=== PATIENT | female | born 1940 | race Caucasian/White ===

== ENCOUNTER 2016-09-03 23:40 | Inpatient (IN) | payer BC, SELFPAY ==
--- NOTE | ~2016-09-03 | OP ---
Record Of Operation [facility] [address] [place]. [address] NAME: JARON WEAVER : 38 STATUS : ADM IN PAT#: [id number] AGE: 76 ADM/REG DATE : 09/04/16 MR#: [id number] REPORT SERV DATE: 09/06/16 DICTATED BY: MK CASTELLANOS DATE: 09/06/16 REPORT STATUS : Draft TRANSCRIBED BY: MODL DATE: 09/06/16 DATE OF PROCEDURE: 09/06/2016 PREOPERATIVE DIAGNOSIS: Gross hematuria and filling defect, left renal pelvis. POSTOPERATIVE DIAGNOSIS: Gross hematuria and filling defect, left renal pelvis. PROCEDURE: Cystoscopy, bilateral retrograde pyelography, left ureteroscopy, brush biopsy and cytology collection from left renal pelvis. ANESTHESIA: General. ESTIMATED BLOOD LOSS: 10 mL. FLUID REPLACEMENT: 600 mL of crystalloid. DRAINS: None. INDICATION: A 76-year-old white female with cirrhosis and gross hematuria. CT imaging demonstrates filling defect in the left renal pelvis. FINDINGS: 1. Filling defect of left renal pelvis. 2. Left proximal ureter was fixed and would not expand to allow passage of ureteroscope into the renal pelvis. TECHNIQUE: The patient and identified, brought to the operating room, and administered general anesthetic agent by the Anesthesia Service and intubated. She was positioned in dorsal lithotomy position. Vulva, groin, and introitus were prepped and draped in usual sterile fashion. A 22-[place] Ze[place]ander cystoscopic sheath with 30-degree lens was used for cystourethroscopy. The urethra was normal. The bladder was surveyed. There was blood coming from the left ureteral orifice. The right ureteral orifice is normal. There were no urothelial lesions in the bladder. A 30 and 70 degree scopes were used for examination. I then cannulated the left ureteral orifice and performed a left retrograde pyelogram. It showed a normal course of the left ureter, however, there was a large defect in the lower pole collecting system displacing the renal pelvis and proximal ureter medially. There was little if any hydronephrosis. The right retrograde pyelogram was normal. I advanced a 0.035 wire up the left ureter. Over the wire, I then removed the cystoscope. I dilated the proximal ureter with the axial dilator starting at 7-New Zealander and going to 12- [place]. I could not get the dilators to go up into the proximal ureter above 7-New Ze[place]ander. I removed the axial dilators, and then next to the wire, I advanced the rigid ureteroscope. The distal ureter was normal. I could get up to about the level of the proximal ureter and could advance no further. The ureter just would not distend. I placed the second wire through the ureteroscope and removed the rigid ureteroscope and then advanced a flexible ureteroscope. I met the same fate and could not pass it into the proximal ureter. I Record Of [place] [id number] [facility] [place]. [address] NAME: JARON WEAVER : 38 STATUS : ADM IN PAT#: [id number] AGE: 76 ADM/REG DATE : 09/04/16 MR#: [id number] REPORT SERV DATE: 09/06/16 DICTATED BY: MK CASTELLANOS DATE: 09/06/16 REPORT STATUS : Draft TRANSCRIBED BY: ADA DATE: 09/06/16 removed the flexible ureteroscope and then used a brush biopsy tool. First, I sampled cytology of the left renal pelvis through a 5-New Zealander open-ended catheter and then I used the brush biopsy and biopsied the lower portion of the renal pelvis with the brush biopsy. This was collected and sent and in a specimen container. I contemplated leaving a ureteral stent. Based on the fact that she needs a nephroureterectomy, I opted to leave the stent out. The wires were removed, the bladder was drained, and the procedure was terminated. The patient was awakened and taken to the recovery unit in stable and satisfactory condition. LIZY/ADA Mk Castellanos M.D. / [id number] CC: Annamarie Bowie M.D.
--- NOTE | ~2016-09-03 | HP ---
History And Physical [place] [address] [facility] [place]. [address] NAME: JARON WEAVER : 38 STATUS : ADM IN PAT#: [id number] AGE: 76 ADM/REG DATE : 09/04/16 MR#: [id number] REPORT SERV DATE: 09/04/16 DICTATED BY: REYNALDO SANCHEZ DATE: 09/04/16 REPORT STATUS : Draft TRANSCRIBED BY: MODL DATE: 09/04/16 DATE OF ADMISSION: 09/04/2016 CHIEF COMPLAINT: A 76-year-old female presenting with severe hematuria and increasing lethargy. HISTORY OF PRESENTING ILLNESS: The patient's history was obtained through careful interview with the patient and son, coupled with review of [facility] and [facility] medical records. The patient has been ill for about a month. She had actually seen Dr. Sandoval about two weeks ago because of increasing fatigue and illness and lethargy. But over this last week, the patient has developed intermittent hematuria and today, it became so severe that she felt she had to come to the hospital. She has not been passing any urinary blood clots. She has no dysuria, but she does describe polyuria and polydipsia. She has felt lightheaded, off balance, dizzy, lethargic. She has been apparently laying in bed almost all day long for several days, but there has been no overt confusion. No abdominal pain. No flank pain. No headache. No chest pain. No back pain. No pain complaints at all. She has no knowledge of previous diabetes, although several years ago, the patient was listed as being diabetic with a hemoglobin A1c of 7.1. REVIEW OF SYSTEMS: Otherwise, 14-point review of systems was obtained and was negative. PAST MEDICAL HISTORY: 1. NEWTON cirrhosis, followed by Dr. Moises Fletcher. 2. Portal hypertension with esophageal varices, followed by Dr. Leonel Mendez. 3. Coronary artery disease? but negative catheterization of the heart previously. 4. Hypertension. 5. Colonic polyps and duodenal polyps. 6. Spontaneous bacterial peritonitis with recurrent ascites. 7. Urinary tract infection. 8. Diabetes in 2014. Hemoglobin A1c of 7.1, but has never been on diabetic medications. 9. Anemia with iron infusions, followed by Dr. Sandoval. 10.Hepatic encephalopathy. PAST SURGICAL HISTORY: 1. Hysterectomy. 2. Cholecystectomy. 3. Appendectomy. ALLERGIES: NO KNOWN DRUG ALLERGIES. History And Physical [address] [place]. [address] NAME: JARON WEAVER : 38 STATUS : ADM IN [facility] WITH [facility]#: [id number] AGE: 76 ADM/REG DATE : 09/04/16 MR#: [id number] REPORT SERV DATE: 09/04/16 DICTATED BY: REYNALDO SANCHEZ DATE: 09/04/16 REPORT STATUS : Draft TRANSCRIBED BY: ADA DATE: 09/04/16 SOCIAL HISTORY: No tobacco abuse. No drug abuse. Lives in [place], [place]. Lives alone, has been a for 13 years. FAMILY HISTORY: Diabetes, heart disease, hypertension. No liver disease. CURRENT MEDICATIONS: Include Cipro twice a week, Protonix 20 mg p.o. daily, propranolol 20 mg p.o. b.i.d., spironolactone 50 mg p.o. daily, Actigall 600 mg p.o. b.i.d., lactulose two doses each day. PHYSICAL EXAMINATION: VITAL SIGNS: Temperature 97.7, pulse 63, blood pressure 146/63, respiratory rate 16, O2 saturation 97% on room air. GENERAL: A pleasant, cooperative female, somewhat lethargic and ill. HEENT: Pupils equal, round, and reactive to light. No conjunctival pallor. No scleral icterus. Nares are patent. Oropharynx is clear of obstruction. Mildly dry mucous membranes. NECK: Trachea midline. No thyromegaly. LYMPH: No cervical lymphadenopathy. No supraclavicular lymphadenopathy. RESPIRATORY: Clear to auscultation at bases. No wheezes, rales, or rhonchi. Normal respiratory effort. CARDIOVASCULAR: Regular rate and rhythm. The patient does have a 3/6 systolic murmur. No rubs or gallops. No extremity edema is appreciated. ABDOMEN: Soft, nontender, nondistended. Normal bowel sounds auscultated throughout. No hepatosplenomegaly. DERMATOLOGICAL: Warm and dry extremities. No pallor. No cyanosis. PSYCHIATRIC: Normal affect. Good mood. Alert and oriented x3. LABORATORY DATA: White blood cell count 6.3, hemoglobin 15, hematocrit 43, platelets 153. Sodium 134, potassium 4.2, chloride 101, bicarbonate 25, BUN 8, creatinine 1.15 from baseline creatinine of 0.8, glucose 425, lipase 374, albumin 2.6. INR 1.2, total bilirubin 1.7, alkaline phosphatase 416. Urinalysis shows greater than 182 red blood cells. No evidence of infection. STUDIES: 1. EKG by my own evaluation shows sinus rhythm, left axis deviation, left ventricular hypertrophy. 2. CT scan of the abdomen shows left hydronephrosis. ASSESSMENT AND PLAN: 1. Severe hematuria with good urine flow and no blood clots. Consult Dr. Rodriguez, urologist, who is aware of case and discussed it with ER staff. 2. New diagnosis of diabetes. Check hemoglobin A1c. Place on IV fluids and sliding scale insulin for now. 3. Uncontrolled hepatic encephalopathy. The patient admits to occasionally being noncompliant with regular dosing of lactulose. We will increase lactulose dose and give scheduled and monitor ammonia level. History And Physical [address] [address] NAME: JARON WEAVER : 38 STATUS : ADM IN PAT#: [id number] AGE: 76 ADM/REG DATE : 09/04/16 MR#: [id number] REPORT SERV DATE: 09/04/16 DICTATED BY: REYNALDO SANCHEZ DATE: 09/04/16 REPORT STATUS : Draft TRANSCRIBED BY: ADA DATE: 09/04/16 4. Nonalcoholic steatohepatitis cirrhosis. 5. Hydronephrosis. Consult Urology. KPL/MODL Reynaldo Sanchez M.D. / [id number] CC: Annamarie Bowie M.D. Gregory R. Sutton, MD Patrick Foley, M.D.
--- NOTE | ~2016-09-03 | CN ---
Consultation Report [facility] [address] [place]. [address] NAME: JARON ORTIZ : 38 STATUS : ADM IN PAT#: [id number] AGE: 76 ADM/REG DATE : 09/04/16 MR#: [id number] REPORT SERV DATE: 09/04/16 DICTATED BY: MK CASTELLANOS DATE: 09/04/16 REPORT STATUS : Draft TRANSCRIBED BY: MODL DATE: 09/04/16 DATE OF CONSULTATION: 09/04/2016 REASON FOR CONSULTATION: Gross hematuria. REQUESTING PROVIDER: Hospitalist Service. Other involved physicians are Dr. Yash Sandoval and Dr. Moises Fletcher. IMPRESSION: 1. Gross hematuria, painless. 2. Possible blood noted in the left renal pelvis on noncontrast CT. 3. Cirrhosis from nonalcoholic steatohepatitis. 4. Diabetes mellitus, new with glucosuria and elevated serum blood sugars. 5. Acute kidney injury that has resolved. 6. She is hemodynamically stable, as well as a normal hemoglobin and hematocrit. PLAN: 1. CT scan of the abdomen and pelvis with IV contrast tomorrow. 2. Cysto, bilateral retrograde pyelogram, possible brush biopsy of left renal pelvis on Tuesday. DISCUSSION: Ms. Ortiz is a 76-year-old female, who came to the hospital with gross hematuria. She has had it intermittently for a month. It has been painless. It has not caused her alarm until yesterday, at which point she felt that it was too much blood. She denies any nausea or vomiting. She came to the emergency department and had a CT scan, which reported some mild left hydronephrosis with some increased density in the fluid in the left renal pelvis, consistent with possible blood. There were no stones, and there were no obstructions noted. She does have a history of cirrhosis and hepatitis, that has been relatively stable. However, her ammonia levels were elevated when she came into the emergency department last night. Additionally, she has a vague history of diabetes, but was not under any care or treatment for it and that was out of control last night as well. She denies any dysuria. She says she empties her bladder well. She has no history of urolithiasis. She has no history of tobacco abuse. PHYSICAL EXAMINATION: GENERAL: Shows a well-developed, well-nourished white female, in no acute distress. She is awake and alert. Her cognitive function seems pretty good. HEENT: Sclerae anicteric. NECK: Supple. LUNGS: Clear. HEART: Has regular rate and rhythm. ABDOMEN: Soft and nontender. I do not appreciate any ascites. Her flanks are nontender. Consultation Report [place] [address] [place]. [address] NAME: JARON ORTIZ : 38 STATUS : ADM IN PAT#: [id number] AGE: 76 ADM/REG DATE : 09/04/16 MR#: [id number] REPORT SERV DATE: 09/04/16 DICTATED BY: MK CASTELLANOS DATE: 09/04/16 REPORT STATUS : Draft TRANSCRIBED BY: ADA DATE: 09/04/16 The bladder is not distended. EXTREMITIES: Lower extremities show no deformities. STUDIES: Serum creatinine on admission was 1.15, it has declined to 0.79 with hydration. Urinalysis showed 3+ blood, 2+ glucose, greater than 180 red cells per high-power field. CT scan as described above. Her INR and coags were normal. Her serum ammonia level was 106 last night. This does not appear to be a stone. Given her medical comorbidities, it is possible she has some papillary necrosis as a source for hematuria. Additional problems could be a urothelial cancer such as a transitional carcinoma of the renal pelvis. A contrast CT will help in elucidating this and probable cysto and retrograde at a later date. PF/MODL Mk Castellanos M.D. / [id number] CC: Annamarie Bowie M.D.
--- NOTE | ~2016-09-03 | DS ---
Discharge Summary [place] [id number] [place]. [address] NAME: JARON WEAVER : 38 STATUS : DIS IN PAT#: [id number] AGE: 76 ADM/REG DATE : 09/04/16 MR#: [id number] REPORT SERV DATE: 09/08/16 DICTATED BY: DATE: REPORT STATUS : Draft TRANSCRIBED BY: MODL DATE: 09/07/16 ADMISSION DATE: 09/04/2016 DISCHARGE DATE: 09/07/2016 DISCHARGE DIAGNOSES: 1. Hematuria. 2. Diabetes mellitus type 2, uncontrolled with an A1c of 12.4. 3. 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 4. Acute kidney injury. 5. Pancreatic cyst. DISCHARGE MEDICATIONS: 1. Cipro 250 mg p.o. Tuesday and Tuesday. 2. NovoLog sliding scale level 2. 3. Protonix 20 mg p.o. daily. 4. Inderal 20 mg p.o. b.i.d. 5. Ursodiol 600 mg p.o. b.i.d. 6. Aldactone 50 mg p.o. daily. 7. Rifaximin 550 mg p.o. b.i.d. 8. Levemir 20 units subcu daily. CONSULTING PHYSICIANS: kM Rodriguez M.D., with Urology. For full H and P, please refer to Dr. Boy Baird's dictation on 09/03/2016. Please also see Dr. Mk Rodriguez's consultation report on 09/03/2016 as well as record of operation on 09/05/2016. HOSPITAL COURSE/PROBLEM LIST: 1. Hematuria. Dr. Rodriguez was consulted from Urology. The patient underwent cystoscopy with bilateral retrograde pyelography, left ureteroscopy, brush biopsy and cytology collection from left renal pelvis. Findings included a filling defect of the left renal pelvis, and the left proximal ureter was fixed in and would not expand to allow passage of ureteroscope into the renal pelvis. The patient will follow up as an outpatient with Dr. Rodriguez on Tuesday of this week. She likely needs a nephroureterectomy; however, due to her cirrhosis Dr. Rodriguez will discuss this with Dr. Moises Fletcher to decide if it would be safe to proceed and what her prognosis would be. Biopsies are still pending from the ureteroscopy; however, Dr. Rodriguez indicates that this could possibly be a transitional cell carcinoma of the left kidney. This would also complicate prognosis. 2. Diabetes mellitus type 2, uncontrolled. The patient's hemoglobin A1c was 12.4, apparently she has been told she had diabetes in the past with a hemoglobin A1c of 7.1 several years ago; however, she was never placed on antidiabetic medications. I will be discharging her with Levemir as well as NovoLog sliding scale. She does not have a primary care provider at this time. She lives alone. Her daughter is staying with her to take care of her; however, she is from [place], we tried to set up home health care for her. Her daughter also states that she will find her a primary care provider Discharge Summary [address] [place]. [address] NAME: JARON WEAVER : 38 STATUS : DIS IN PAT#: [id number] AGE: 76 ADM/REG DATE : 09/04/16 MR#: [id number] REPORT SERV DATE: 09/08/16 DICTATED BY: DATE: REPORT STATUS : Draft TRANSCRIBED BY: MODL DATE: 09/07/16 TORRIE. She will need to do this for diabetes management and overall medical management. 3. Cirrhosis due to NEWTON. She is followed by Dr. Moises Fletcher. She will follow up with him as needed. 4. Acute kidney injury. The patient's creatinine today is 1.26. She is encouraged to increase p.o. fluids especially water. Apparently, the patient was drinking Gatorade constantly at home due to thirst and feeling poorly. The patient was instructed to not drink Gatorade due to her hemoglobin A1c of 12.4, and to continue with water and non- sugary beverages. 5. Pancreatic cyst. This was noted CT scan, likely benign per Radiology's report. She will need to obtain and follow up with the primary care provider for possible imaging in the future. I will discharge the patient home today. Again, she will follow up with Dr. Mk Rodriguez on Tuesday of this week. CLR/MODL Merritt Ramirez NP / [id number] CC: MD Moises Avalos M.D. Patrick Foley, M.D. Chirag Patel, M.D.
[2016-09-03 20:26] LABS: INTERNATIONAL NORMAL RATI 1.2 UNITS (-); PARTIAL THROMBO TIME 31.2 SEC (22.5-37.2); PROTIME (NOT ORD) 15.3 SEC (12.0-14.5)
[2016-09-03 20:32] LABS: A/G RATIO 0.7 (0.7-1.9); ALBUMIN 2.6 G/DL (3.5-5.0); CALCIUM, SERUM 9.2 MG/DL (8.5-10.4); CHLORIDE, SERUM 101 MMOL/L (96-112); CO2 (CARBON DIOXIDE) 25 MMOL/L (24-34); CREATININE 1.15 MG/DL (0.55-1.02); GFR AFRICAN AMERICAN 53 ML/MIN (>=60); GFR NON AFRICAN AMERICAN 46 ML/MIN (>=60); GLOBULIN 3.9 G/DL (2.5-4.1); POTASSIUM, SERUM 4.2 MMOL/L (3.5-5.3); SGOT(AST) 39 U/L (5-40); SGPT(ALT) 31 U/L (5-65); SODIUM, SERUM 134 MMOL/L (135-148); TOTAL BILIRUBIN 1.7 MG/DL (0-1.2); TOTAL PROTEIN 6.5 G/DL (6.0-8.5)
[2016-09-03 20:37] LABS: BASOPHILS 0.5 %; BASOPHILS ABSOLUTE 0.03 10/3/uL (0.0-0.16); EOSINOPHILS 2.7 %; EOSINOPHILS ABSOLUTE 0.17 10/3/uL (0.0-0.53); ER CBC TAT 0 Hrs 24 Mins; HEMATOCRIT 42.6 % (36.0-48.0); HEMOGLOBIN 15.2 g/dL (12.0-16.0); IMMATURE GRANULOCYTES 0.2 %; IMMATURE GRANULOCYTES ABSOLUTE 0.01 10/3/uL (0.0-0.11); LYMPHOCYTES ABSOLUTE 1.82 10/3/uL (0.67-4.30); MANUAL DIFF NO %; MEAN CORPUS HGB CONC 35.7 g/dL (32.0-36.0); MEAN CORPUSCULAR VOLUME 92.4 fL (80-100); MEAN PLATELET VOLUME 10.1 fL (9.2-13.0); MONOCYTES 13.1 %; MONOCYTES ABSOLUTE 0.82 10/3/uL (0.21-1.20); NEUTROPHILS 54.5 %; NEUTROPHILS ABSOLUTE 3.42 10/3/uL (2.02-8.40); PLATELET COUNT 153 10/3/uL (150-400); RBC DISTRIBUTION WIDTH 13.7 % (12.0-16.0); RED CELL COUNT 4.61 10/6/uL (4.0-5.6); WHITE BLOOD CELLS 6.3 10/3/uL (4.5-10.5)
[2016-09-03 20:38] LABS: ALKALINE PHOSPHATASE 416 U/L (45-117); BUN (BLOOD UREA NITROGEN) 8 MG/DL (6-23); GLUCOSE, SERUM 425 MG/DL (60-99)
[2016-09-03 23:09] LABS: ASCORBIC ACID (UR NOT ORDER) NEG (NEG); BILIRUBIN, URINE NEGATIVE (NEG); ER URINALYSIS TAT 0 Hrs 13 Mins; KETONE, URINE NEGATIVE (NEG); LEUKOCYTE ESTERASE(NOT OR NEG (NEG); NITRITE (URINE) NEG (NEG); WBC (NOT ORDERED) (RFLEX) 5 (0-5)
[~2016-09-03 23:40] MED LIST: ACT300 PO; ALAVERT10 MG PO; CIP2 PO; DEMA20 PO; DRAMAMINE25 MG PO; FERGON240 MG PO; FERROUS SULF325 M1 PO; GLUCOPHXR7 PO; HALF81 PO; HYZAAR 100/25 T1 TAB PO; I10 PO; I20 PO; IRON PO; LEVAQUIN5T PO; PRILO PO; PROMAR OR; PROTONIX PO; SPIRO50 PO; TOPXL25 PO; VITE1000 PO
[2016-09-04 00:29] LABS: ACETONE NEG
[2016-09-04 00:46] LABS: ALBUMIN 2.6 G/DL (3.5-5.0); ALKALINE PHOSPHATASE 388 U/L (45-117); DIRECT BILIRUBIN 0.7 MG/DL (0.0-0.4); SGOT(AST) 39 U/L (5-40); SGPT(ALT) 32 U/L (5-65); TOTAL BILIRUBIN 1.7 MG/DL (0-1.2); TOTAL PROTEIN 6.3 G/DL (6.0-8.5)
[2016-09-04] MEDS ORDERED: I20 PO (02:06)
[2016-09-04] MEDS ORDERED: PROTONIX20 MG PO (02:07)
[2016-09-04] MEDS ORDERED: SPIRO50 PO (02:07)
[2016-09-04] MEDS ORDERED: ACT300 PO (02:08)
[2016-09-04] MEDS ORDERED: CIP2 PO (02:08)
[2016-09-04 08:08] LABS: BASOPHILS 0.5 %; BASOPHILS ABSOLUTE 0.03 10/3/uL (0.0-0.16); EOSINOPHILS 2.9 %; EOSINOPHILS ABSOLUTE 0.16 10/3/uL (0.0-0.53); HEMATOCRIT 41.3 % (36.0-48.0); HEMOGLOBIN 14.4 g/dL (12.0-16.0); IMMATURE GRANULOCYTES 0.4 %; IMMATURE GRANULOCYTES ABSOLUTE 0.02 10/3/uL (0.0-0.11); LYMPHOCYTES ABSOLUTE 1.82 10/3/uL (0.67-4.30); MEAN CORPUS HGB CONC 34.9 g/dL (32.0-36.0); MEAN CORPUSCULAR HEMOGLOB 32.6 pg (26.0-34.0); MEAN CORPUSCULAR VOLUME 93.4 fL (80-100); MONOCYTES 10.3 %; MONOCYTES ABSOLUTE 0.57 10/3/uL (0.21-1.20); NEUTROPHILS 52.9 %; NEUTROPHILS ABSOLUTE 2.91 10/3/uL (2.02-8.40); PLATELET COUNT 124 10/3/uL (150-400); RBC DISTRIBUTION WIDTH 13.5 % (12.0-16.0); RED CELL COUNT 4.42 10/6/uL (4.0-5.6); WHITE BLOOD CELLS 5.5 10/3/uL (4.5-10.5)
[2016-09-04 08:09] LABS: MANUAL DIFF NO %
[2016-09-04 08:15] LABS: INTERNATIONAL NORMAL RATI 1.3 UNITS (-); PROTIME (NOT ORD) 16.4 SEC (12.0-14.5)
[2016-09-04 08:32] LABS: A/G RATIO 0.7 (0.7-1.9); ALBUMIN 2.3 G/DL (3.5-5.0); BUN (BLOOD UREA NITROGEN) 7 MG/DL (6-23); CALCIUM, SERUM 8.4 MG/DL (8.5-10.4); CHLORIDE, SERUM 111 MMOL/L (96-112); CO2 (CARBON DIOXIDE) 22 MMOL/L (24-34); CREATININE 0.79 MG/DL (0.55-1.02); GFR AFRICAN AMERICAN 83 ML/MIN (>=60); GFR NON AFRICAN AMERICAN 72 ML/MIN (>=60); GLOBULIN 3.3 G/DL (2.5-4.1); POTASSIUM, SERUM 3.7 MMOL/L (3.5-5.3); SGOT(AST) 33 U/L (5-40); SGPT(ALT) 30 U/L (5-65); TOTAL BILIRUBIN 1.5 MG/DL (0-1.2); TOTAL PROTEIN 5.6 G/DL (6.0-8.5)
[2016-09-04 08:37] LABS: ALKALINE PHOSPHATASE 301 U/L (45-117); GLUCOSE, SERUM 175 MG/DL (60-99); SODIUM, SERUM 142 MMOL/L (135-148)
[2016-09-05 06:47] LABS: BUN (BLOOD UREA NITROGEN) 7 MG/DL (6-23); CALCIUM, SERUM 8.6 MG/DL (8.5-10.4); CHLORIDE, SERUM 112 MMOL/L (96-112); CO2 (CARBON DIOXIDE) 22 MMOL/L (24-34); CREATININE 0.85 MG/DL (0.55-1.02); GFR AFRICAN AMERICAN 76 ML/MIN (>=60); GFR NON AFRICAN AMERICAN 66 ML/MIN (>=60); GLUCOSE, SERUM 159 MG/DL (60-99); POTASSIUM, SERUM 4.2 MMOL/L (3.5-5.3); SODIUM, SERUM 142 MMOL/L (135-148)
[2016-09-05 07:18] LABS: GLYCOHEMOGLOBIN (HbA1c) 12.4 % (4.7-6.1)
[2016-09-06 16:35] LABS: HEMATOCRIT 40.8 % (36.0-48.0); HEMOGLOBIN 14.3 g/dL (12.0-16.0)
[2016-09-07 06:39] LABS: BASOPHILS 0.1 %; BASOPHILS ABSOLUTE 0.01 10/3/uL (0.0-0.16); EOSINOPHILS 1.6 %; EOSINOPHILS ABSOLUTE 0.12 10/3/uL (0.0-0.53); HEMATOCRIT 39.4 % (36.0-48.0); HEMOGLOBIN 13.7 g/dL (12.0-16.0); IMMATURE GRANULOCYTES 0.1 %; IMMATURE GRANULOCYTES ABSOLUTE 0.01 10/3/uL (0.0-0.11); LYMPHOCYTES 20.8 %; LYMPHOCYTES ABSOLUTE 1.53 10/3/uL (0.67-4.30); MEAN CORPUS HGB CONC 34.8 g/dL (32.0-36.0); MEAN CORPUSCULAR HEMOGLOB 32.8 pg (26.0-34.0); MEAN CORPUSCULAR VOLUME 94.3 fL (80-100); MEAN PLATELET VOLUME 10.1 fL (9.2-13.0); MONOCYTES 14.9 %; NEUTROPHILS 62.5 %; PLATELET COUNT 113 10/3/uL (150-400); RBC DISTRIBUTION WIDTH 14.1 % (12.0-16.0); RED CELL COUNT 4.18 10/6/uL (4.0-5.6); WHITE BLOOD CELLS 7.4 10/3/uL (4.5-10.5)
[2016-09-07 06:40] LABS: MANUAL DIFF NO %
[2016-09-07 06:50] LABS: CALCIUM, SERUM 8.8 MG/DL (8.5-10.4); CHLORIDE, SERUM 109 MMOL/L (96-112); CO2 (CARBON DIOXIDE) 23 MMOL/L (24-34); CREATININE 1.26 MG/DL (0.55-1.02); GFR AFRICAN AMERICAN 47 ML/MIN (>=60); GFR NON AFRICAN AMERICAN 41 ML/MIN (>=60); GLUCOSE, SERUM 185 MG/DL (60-99); POTASSIUM, SERUM 4.5 MMOL/L (3.5-5.3); SODIUM, SERUM 139 MMOL/L (135-148)
[2016-09-07 06:51] LABS: BUN (BLOOD UREA NITROGEN) 11 MG/DL (6-23)
[2016-09-07] MEDS ORDERED: XIFAXAN550 MG PO ×2 (10:23→14:04)
[2016-09-07] MEDS ORDERED: NOVOLOG SC (14:01)
[2016-09-07] MEDS ORDERED: LEVEMFLXPN SC (14:04)
== END 2016-09-07 14:53 | disposition home or self-care (01) | DRG 687 ==
LOC: ER 23:40 → 5SO 09-04 01:58
PROVIDERS: Emergency Medicine; Hospitalist; Internal Medicine; Nurse Practitioner; Urology
PROC: 0TB48ZX Excision of Left Kidney Pelvis, Via Natural or Artificial Opening Endoscopic, Diagnostic (ICD-10-PCS; 2016-09-06)
PROC: BT141ZZ Fluoroscopy of Kidneys, Ureters and Bladder using Low Osmolar Contrast (ICD-10-PCS; principal; 2016-09-06 06:15)
DX: C64.2 Malignant neoplasm of left kidney, except renal pelvis (principal); K86.2 Cyst of pancreas; E11.649 Type 2 diabetes mellitus with hypoglycemia without coma; K75.81 Nonalcoholic steatohepatitis (NASH); N13.30 Unspecified hydronephrosis; R31.9 Hematuria, unspecified; K72.90 Hepatic failure, unspecified without coma; I25.10 Atherosclerotic heart disease of native coronary artery without angina pectoris; I10 Essential (primary) hypertension; Z86.010 Personal history of colon polyps; Z87.440 Personal history of urinary (tract) infections; Z90.710 Acquired absence of both cervix and uterus; Z90.49 Acquired absence of other specified parts of digestive tract; Z98.890 Other specified postprocedural states; Z83.3 Family history of diabetes mellitus; Z82.49 Family history of ischemic heart disease and other diseases of the circulatory system; Z91.14 Patient's other noncompliance with medication regimen; Z79.899 Other long term (current) drug therapy
CPT/HCPCS: 36415; 74176; 74177; 74420; 80048; 80053; 80076; 81001; 82009; 82140; 82962; 83036; 83690; 83735; 84443; 85014; 85018; 85025; 85610; 85730; 86850; 86900; 86901; 88112; 88173; 93005; 99285; A9270-GY; C1758; J2405; J2710; J3010; J3475; Q9967

== ENCOUNTER 2016-09-14 16:06 | Observation (INO) | payer BC, OTHER ==
--- NOTE | ~2016-09-14 | HP ---
History And Physical [place] [address] [place]. [address] NAME: JARON WEAVER : 38 STATUS : ADM IN [facility]#: [id number] AGE: 76 ADM/REG DATE : 09/14/16 MR#: [id number] REPORT SERV DATE: 09/14/16 DICTATED BY: RIANNA TANG DATE: 09/14/16 REPORT STATUS : Draft TRANSCRIBED BY: MODL DATE: 09/14/16 DATE OF ADMISSION: 09/14/2016 HISTORY OF PRESENT ILLNESS: This is a 76-year-old female, who comes in for right hip and leg pain. The patient has a history of NEWTON cirrhosis, portal hypertension with esophageal varices, and diabetes. She was recently admitted and discharged here from 09/04/2016 to 09/08/2016. At that time, she was diagnosed with a filling defect on the left renal pelvis, where they did a scope and did some washings, and pathology has been negative for malignancy. The patient continued having hematuria since then, but she has been having hematuria even before that. She denies any dysuria, fever, chills, or sweats. The patient, however, was discharged with Levemir and NovoLog, and as the days went by, they are finding that the patient has been getting hypoglycemic episodes with the meter staying low. They have to keep on feeding her just to keep up with it. They did admit that she does not eat much and she has been feeling bad with this. They followed up with their PCP recently and she was told to hold the insulin and start the metformin for her. The patient also followed up with Dr. Rodriguez, where she was told to document how many times she had hematuria and they might repeat an ultrasound or a procedure a month later. While this has been going on, she started having this right ankle pain four days prior to admission, which worsened traveling up her right leg to her hip. It got so severe that when she saw her PCP for the first time yesterday, he had to prescribe her some oxycodone. The patient continued feeling bad, making her nonambulatory, preferred to be either sitting down or lying down, and they called their PCP again today, where she was told to come to be admitted. They denied any kind of trauma or falls. She admitted to having this problem in February of last year and with outpatient rehab, it got better after six months. There is no near syncopal or syncopal episode. No cough or shortness of breath. No bowel changes. No abdominal pain, nausea or vomiting and the rest of the 14-point review of system is negative except as above. PAST MEDICAL HISTORY: Includes NEWTON cirrhosis, followed by Dr. Moises Fletcher; portal hypertension with esophageal varices, followed by Dr. Leonel Mendez; hypertension; history of colonic and duodenal polyps; history of SBP with ascites; history of UTI; diabetes diagnosed in 2013; anemia with iron infusion; and history of hepatic encephalopathy. PAST SURGICAL HISTORY: She had a hysterectomy, cholecystectomy, and appendectomy. ALLERGIES: SHE HAS NO KNOWN DRUG ALLERGIES. MEDICATIONS: Include Tylenol, Cipro, metformin, oxycodone, Protonix, Inderal, Xifaxan, spironolactone, tramadol, and Actigall. FAMILY HISTORY: Diabetes, hypertension, and heart disease. SOCIAL HISTORY: The patient does not smoke, drink, or use recreational drugs. PHYSICAL EXAMINATION: GENERAL: The patient is alert and oriented x3, not in cardiopulmonary distress. VITAL SIGNS: Include a blood pressure of 117/56, saturating 94% on room air, temperature History And Physical [address] [address] NAME: JARON WEAVER : 38 STATUS : ADM IN [facility]#: [id number] AGE: 76 ADM/REG DATE : 09/14/16 MR#: [id number] REPORT SERV DATE: 09/14/16 DICTATED BY: RIANNA TANG DATE: 09/14/16 REPORT STATUS : Draft TRANSCRIBED BY: MODL DATE: 09/14/16 98.1, pulse rate of 72, respirations of 20. NECK: She has supple neck. No JVD or carotid bruits. No lymphadenopathy. HEENT: [place] conjunctivae. Anicteric sclerae. No pharyngeal erythema. LUNGS: Clear. No rales, no wheezes. CARDIOVASCULAR: Regular rate and rhythm. No murmurs appreciated. ABDOMEN: Positive bowel sounds. Soft, nontender. No masses. Fair pulses. No edema. NEURO: Nonlocalizing. SKIN: Examination of the skin did not show any open wound, abrasions, or scratches. BACK: Examination of the back did not show any spinal tenderness or deformity. EXTREMITIES: Examination of the right leg did not show any edema or swelling. There seems to be some soreness on the thigh and calf area, but there is no Homans sign. There is no deformity of the ankle, knee, or hip. NEURO: Nonlocalizing. ASSESSMENT: 1. Right hip, leg, and ankle pain. 2. Diabetes with hypoglycemic episode. 3. Nonalcoholic steatohepatitis cirrhosis. 4. Portal hypertension with esophageal varices. 5. Filling defect in the left renal pelvis. PLAN: The patient took oxycodone and seems to be doing better. She denies any back pain or hip pain at present, but still with right leg pain. More concerning though, she has been hypoglycemic at home. We will hold all present insulin and place her on metformin and level 1 subcu insulin protocol. Continue her home medications. Get PT involved. Check a hip and ankle x-ray and continue her liver meds. This has been explained to her in front of the son and daughter, and they agreed and understood the plan. RITO/ADA Rianna Tang M.D. / [id number] CC: Annamarie Jordan
--- NOTE | ~2016-09-14 | DS ---
Discharge Summary [facility] [address] [place]. [address] NAME: JARON WEAVER : 36 STATUS : DIS [place] PAT#: [id number] AGE: 76 ADM/REG DATE : 09/14/16 MR#: [id number] REPORT SERV DATE: 09/17/16 DICTATED BY: RIANNA TANG DATE: 09/16/16 REPORT STATUS : Draft TRANSCRIBED BY: MODL DATE: 09/16/16 ADMISSION DATE: 09/14/2016 DISCHARGE DATE: 09/16/2016 FINAL DIAGNOSES: 1. Right ankle sprain. 2. Diabetes. 3. History of hypoglycemia. 4. Non-alcoholic steatohepatitis cirrhosis. 5. Portal hypertension with esophageal varices. 6. Left filling defect in the renal pelvis. DIAGNOSTIC EXAMS: Hip x-rays showing mild medial joint space narrowing involving the right hip without acute bony abnormality appreciated. Right ankle showing no acute bony abnormality appreciated involving the right ankle. Chest x-ray showing no acute cardiopulmonary disease. HOSPITAL COURSE: Please refer to the H and P done by myself dated on 09/14/2016. Briefly, this is a 76-year-old female, who comes in for right hip pain and ankle pain. The patient has a history of [place] cirrhosis, portal hypertension, esophageal varices, and diabetes. She was recently admitted and discharged from 09/04/2016 to 09/08/2016. At that time, she was diagnosed with a filling defect in the left renal pelvis and continued to have hematuria. She then followed up with Dr. Rodriguez and pathology turned out to be negative and was told to follow up in a month for further imaging. Meanwhile, the patient started having some right ankle pain that shoots up to her hip, went to her PCP and she was prescribed narcotics. Pain continued and the patient was referred for direct admit. When she was here, her pain is not as much as before, but they admitted of taking the oxycodone. She was able to walk to the bathroom, but was very weak and needed help. The patient had the above imaging and we got PT involved and they recommended for the patient to go to either SNF or Rehab for further physical therapy. We got [facility] to accept the patient and the patient will be going there this afternoon once we get the insurance approval. Meanwhile, the patient was discharged the last time with insulin and she had hypoglycemic episodes. She is now on metformin with a sliding scale level 1, however, she even refused this. Blood sugar has been slightly elevated, but none greater than 200 and hopefully that once she increases her metformin in a few days, it will control this. She will follow up with Dr. Tucker after discharge from rehab while she will be following up with the rehab doctor while she is there. DISCHARGE MEDICATIONS: She will be on the following medications: Cipro 250 mg twice a day, subcu insulin protocol level 1, Protonix 20 mg a day, propranolol 20 mg twice a day, Rifaximin 550 mg twice a day, Aldactone 50 mg a day, Actigall 600 mg twice a day, metformin 500 mg once a day and then twice a day starting 09/21/2016, tramadol p.r.n., acetaminophen p.r.n., Roxicodone 2.5 p.r.n. This has been explained to the patient in front of the family member and they agreed and understood the plan. Discharge Summary [address] [address] NAME: JARON WEAVER : 36 STATUS : DIS P[place]co PAT#: [id number] AGE: 76 ADM/REG DATE : 09/14/16 MR#: [id number] REPORT SERV DATE: 09/17/16 DICTATED BY: RIANNA TANG DATE: 09/16/16 REPORT STATUS : Draft TRANSCRIBED BY: ADA DATE: 09/16/16 RITO/ADA Rianna Tang M.D. / [id number] CC: Annamarie Jordan
[~2016-09-14 16:06] MED LIST changes: +LEVEMFLXPN SC; +NOVOLOG SC; +PROTONIX20 MG PO; +XIFAXAN550 MG PO
[2016-09-14] MEDS ORDERED: GLUCPH PO ×2 (17:20)
[2016-09-14] MEDS ORDERED: ULTRAM50 PO (17:22)
[2016-09-14] MEDS ORDERED: SPIRO50 PO (17:23)
[2016-09-14] MEDS ORDERED: XIFAXAN550 MG PO (17:23)
[2016-09-14] MEDS ORDERED: I20 PO (17:23)
[2016-09-14] MEDS ORDERED: PROTONIX20 MG PO (17:24)
[2016-09-14] MEDS ORDERED: CIP2 PO (17:25)
[2016-09-14] MEDS ORDERED: ACT300 PO (17:26)
[2016-09-14] MEDS ORDERED: OXYCOD PO (17:27)
[2016-09-14] MEDS ORDERED: T PO (17:27)
[2016-09-14 19:08] LABS: A/G RATIO 0.6 (0.7-1.9); ALBUMIN 2.1 G/DL (3.5-5.0); CALCIUM, SERUM 9.1 MG/DL (8.5-10.4); CHLORIDE, SERUM 105 MMOL/L (96-112); CO2 (CARBON DIOXIDE) 23 MMOL/L (24-34); CREATININE 0.94 MG/DL (0.55-1.02); GFR AFRICAN AMERICAN 67 ML/MIN (>=60); GFR NON AFRICAN AMERICAN 58 ML/MIN (>=60); GLOBULIN 3.8 G/DL (2.5-4.1); GLUCOSE, SERUM 160 MG/DL (60-99); POTASSIUM, SERUM 4.5 MMOL/L (3.5-5.3); SGPT(ALT) 18 U/L (5-65); SODIUM, SERUM 138 MMOL/L (135-148); TOTAL BILIRUBIN 1.4 MG/DL (0-1.2); TOTAL PROTEIN 5.9 G/DL (6.0-8.5)
[2016-09-14 19:09] LABS: ALKALINE PHOSPHATASE 167 U/L (45-117); BUN (BLOOD UREA NITROGEN) 18 MG/DL (6-23); SGOT(AST) 33 U/L (5-40)
[2016-09-14 19:55] LABS: BASOPHILS 0.4 %; BASOPHILS ABSOLUTE 0.03 10/3/uL (0.0-0.16); EOSINOPHILS 4.4 %; EOSINOPHILS ABSOLUTE 0.35 10/3/uL (0.0-0.53); HEMATOCRIT 36.6 % (36.0-48.0); HEMOGLOBIN 12.5 g/dL (12.0-16.0); IMMATURE GRANULOCYTES 0.5 %; IMMATURE GRANULOCYTES ABSOLUTE 0.04 10/3/uL (0.0-0.11); LYMPHOCYTES 25.5 %; LYMPHOCYTES ABSOLUTE 2.01 10/3/uL (0.67-4.30); MEAN CORPUS HGB CONC 34.2 g/dL (32.0-36.0); MEAN CORPUSCULAR HEMOGLOB 32.6 pg (26.0-34.0); MEAN CORPUSCULAR VOLUME 95.3 fL (80-100); MONOCYTES 14.1 %; MONOCYTES ABSOLUTE 1.11 10/3/uL (0.21-1.20); NEUTROPHILS 55.1 %; NEUTROPHILS ABSOLUTE 4.35 10/3/uL (2.02-8.40); RBC DISTRIBUTION WIDTH 14.6 % (12.0-16.0); RED CELL COUNT 3.84 10/6/uL (4.0-5.6); WHITE BLOOD CELLS 7.9 10/3/uL (4.5-10.5)
[2016-09-14 19:56] LABS: MANUAL DIFF NO %; PLATELET COUNT 225 10/3/uL (150-400)
[2016-09-14 20:00] LABS: INTERNATIONAL NORMAL RATI 3.4 UNITS (-)
[2016-09-14 20:12] LABS: PARTIAL THROMBO TIME > 150.0 SEC (22.5-37.2)
[2016-09-14 21:53] LABS: INTERNATIONAL NORMAL RATI 1.2 UNITS (-); PARTIAL THROMBO TIME 29.6 SEC (22.5-37.2); PROTIME (NOT ORD) 14.9 SEC (12.0-14.5)
[2016-09-15 12:57] LABS: ASCORBIC ACID (UR NOT ORDER) NEG (NEG); BILIRUBIN, URINE NEGATIVE (NEG); KETONE, URINE NEGATIVE (NEG); LEUKOCYTE ESTERASE(NOT OR SMALL (NEG)
[2016-09-15 13:00] LABS: WBC (NOT ORDERED) (RFLEX) > 182 (0-5)
== END 2016-09-16 14:47 ==
LOC: 2SO 16:06
PROVIDERS: Internal Medicine; Nurse Practitioner Family
DX: S93.401A Sprain of unspecified ligament of right ankle, initial encounter (principal); I10 Essential (primary) hypertension; E11.65 Type 2 diabetes mellitus with hyperglycemia; K76.6 Portal hypertension; K74.60 Unspecified cirrhosis of liver; I85.00 Esophageal varices without bleeding; D64.9 Anemia, unspecified; Z86.010 Personal history of colon polyps; Z87.440 Personal history of urinary (tract) infections; Z90.49 Acquired absence of other specified parts of digestive tract; Z90.710 Acquired absence of both cervix and uterus; Z79.899 Other long term (current) drug therapy; Z98.890 Other specified postprocedural states
CPT/HCPCS: 71010; 73502-RT; 73610-RT; 80053; 81001; 82962; 85025; 85610; 85730; 87086; 97110-GP; 97116-GP; 97162-GP; A9270-GY; G0378; G0379